=== PATIENT | female | born 1940 | race Caucasian/White ===

== ENCOUNTER → 2017-08-13 | Outpatient (CLI) | payer MEDICARE, BC ==
[~2017-08-13] MED LIST: BENICAR PO; CALCIUM & MAGNE1 CAP PO; CO Q-1010 MG PO; DIGESTIVE ENZYM1 TAB PO; FISH OIL1 IU PO; LEVOTHYROXINE0.05 MG PO; VITAMIN C500 MG PO; VITAMIN D1000 IU PO; [UNRECOGNIZED DRUG - OTHER] PO
== END ==
LOC: MC.RAD 11:40
DX: Z12.31 Encounter for screening mammogram for malignant neoplasm of breast (principal)

== ENCOUNTER → 2018-04-27 | Outpatient (CLI) | payer MEDICARE, BC | LOC: SUN.DIA 14:53 | DX: E11.9 Type 2 diabetes mellitus without complications (principal); I10 Essential (primary) hypertension; Z68.26 Body mass index [BMI] 26.0-26.9, adult; Z71.3 Dietary counseling and surveillance | CPT/HCPCS: G0108 ==

== ENCOUNTER → 2018-05-19 | Outpatient (CLI) | payer MEDICARE, BC | LOC: SUN.DIA 11:05 | DX: E11.9 Type 2 diabetes mellitus without complications (principal); I10 Essential (primary) hypertension; Z68.26 Body mass index [BMI] 26.0-26.9, adult; Z71.3 Dietary counseling and surveillance | CPT/HCPCS: G0108 ==

== ENCOUNTER → 2018-08-16 | Outpatient (CLI) | payer MEDICARE, BC | LOC: SUN.DIA 09:31 | DX: E11.9 Type 2 diabetes mellitus without complications (principal); I10 Essential (primary) hypertension | CPT/HCPCS: G0108 ==

== ENCOUNTER → 2019-03-14 | Outpatient (CLI) | payer MEDICARE, BC | LOC: SUN.DIA 10:58 | DX: E11.9 Type 2 diabetes mellitus without complications (principal); I10 Essential (primary) hypertension | CPT/HCPCS: G0108 ==

== ENCOUNTER → 2019-09-05 | Outpatient (CLI) | payer MEDICARE, BC | LOC: MC.RAD 10:30 | DX: Z12.31 Encounter for screening mammogram for malignant neoplasm of breast (principal) ==

== ENCOUNTER → 2021-04-03 | Outpatient (CLI) | payer MEDICARE, BC ==
[2021-04-03] VITALS (7 sets, daily range): BP systolic 187–215; BP diastolic 93–113; PULSE 83–122
[~2021-04-03] VITALS: Ht 162.6 cm; Wt 71.5 kg
[~2021-04-03] MED LIST changes: +AMOXICILLIN 8751 TAB PO; +ARMOUR THYROID30 MG PO; +ASPIRIN 81M81 MG/TA2 PO; +BENICAR 20MG TA20 MG PO; +CARDIZEM CD 18180 MG PO; +FLONASE NASAL S16 GM NS; +FOSAMAX 70MG TA70 MG PO; +GLUCOPHAGE XR500 M1 PO; +LASIX 20MG TABL20 MG PO; +MASON NATURAL2000 IU PO; +MUCINEX DM 30 M1 TE1 PO; +PRILOSEC 20MG20 MG PO; +PROAIR HFA0.09 MG/AC IH; +PROTONIX 40MG T40 MG PO; +REGLAN 5MG T5 MG/TAB PO; +REQUIP0.25 MG PO; +VALTREX1 GM PO; +VITAMIN D31000 IU PO; +ZOLOFT 25MG25 MG PO
== END ==
LOC: COL.CARD 05:41
DX: R06.00 Dyspnea, unspecified (principal)
CPT/HCPCS: A9500; J2785

== ENCOUNTER → 2021-04-23 | Outpatient (CLI) | payer MEDICARE, BC | LOC: COL.VAS 04-11 14:45 | DX: I34.0 Nonrheumatic mitral (valve) insufficiency (principal); R06.00 Dyspnea, unspecified ==

== ENCOUNTER → 2021-04-30 | Outpatient (CLI) | payer MEDICARE, BC | LOC: DIA.ED | DX: E11.9 Type 2 diabetes mellitus without complications (principal); Z79.84 Long term (current) use of oral hypoglycemic drugs; I10 Essential (primary) hypertension; E03.9 Hypothyroidism, unspecified ==

== ENCOUNTER 2021-08-04 17:41 | Inpatient (IN) | payer MEDICARE, BC ==
[~2021-08-04] VITALS: Ht 160 cm; Wt 67.7 kg
[~2021-08-04 17:41] MED LIST changes: -AMOXICILLIN 8751 TAB PO; -ASPIRIN 81M81 MG/TA2 PO; -CARDIZEM CD 18180 MG PO; -FLONASE NASAL S16 GM NS; -FOSAMAX 70MG TA70 MG PO; -LASIX 20MG TABL20 MG PO; -MUCINEX DM 30 M1 TE1 PO; -PRILOSEC 20MG20 MG PO; -PROAIR HFA0.09 MG/AC IH; -PROTONIX 40MG T40 MG PO; -REGLAN 5MG T5 MG/TAB PO; -REQUIP0.25 MG PO; -VALTREX1 GM PO; -ZOLOFT 25MG25 MG PO
[2021-08-04 19:12] LABS: HEMOGLOBIN 12.5 g/dl (12.5-16.0); MEAN CELL VOLUME 86 fl (80.0-100.0); MEAN CORPUSCULAR HEMOGLOBIN 29 pg (27.0-31.0); MEAN CORPUSCULAR HGB CONC 34 g/dl (33.0-37.0); MEAN PLATELET VOLUME 9.7 fl (7.4-10.4); PLATELET COUNT 239 K/mm3 (130-400); RED BLOOD COUNT 4.25 M/mm3 (4.10-5.30); REDCELL DISTRIBUTION WIDTH-CV 12.5 % (11.5-14.5)
[2021-08-04 19:17] LABS: ALANINE AMINOTRANSFERASE 29 U/L (4-34); ALBUMIN 3.7 gm/dL (3.5-5.0); ALKALINE PHOSPHATASE 53 U/L (50-136); ANION GAP 9 mmol/L (7-16); AST,SGOT 36 U/L (15-37); BILIRUBIN,TOTAL 0.4 mg/dL (0.0-1.0); BLOOD UREA NITROGEN 12 mg/dL (7-17); CALCIUM 8.6 mg/dL (8.4-10.2); CARBON DIOXIDE 22 mmol/L (22-30); CHLORIDE 91 mmol/L (98-107); CREATININE, serum 0.66 (0.52-1.25); GLUCOSE 174 mg/dL (74-106); POTASSIUM 4.3 mmol/L (3.4-5.0); SODIUM 122 mmol/L (137-145)
[2021-08-04 19:19] LABS: HEMATOCRIT 36.6 % (37.0-47.0)
[2021-08-04 19:33] LABS: C-REACTIVE PROTEIN 24.2 mg/dL (0.0-0.9); TROPONIN-I < 0.012 ng/mL (0.000-0.035)
[2021-08-04 19:36] LABS: COLLECTION METHOD CLEAN CATCH
[2021-08-04 19:44] LABS: PH 6 (5-8); SQUAMOUS EPITHELIAL None Seen /hpf; URINE APPEARANCE Clear; URINE BACTERIA None Seen /hpf; URINE BILIRUBIN Negative (NEGATIVE); URINE BLOOD Negative (NEGATIVE); URINE COLOR Straw; URINE GLUCOSE Negative (NEGATIVE); URINE KETONE Negative (NEGATIVE); URINE LEUKOCYTE ESTERASE Negative (NEGATIVE); URINE NITRATE Negative (NEGATIVE); URINE PROTEIN(semi-quant) Negative (NEGATIVE); URINE RBC 0-2 /hpf; URINE UROBILINOGEN Negative (NEGATIVE)
[2021-08-04 19:48] LABS: BAND 2 % (0-10); LYMPHOCYTE 14 % (20.0-51.0); NEUTROPHILS 77 % (42.0-75.2); PLATELET ESTIMATE NORMAL (NORMAL)
[2021-08-04 19:58] LABS: ERYTHROCYTE SEDIMENTATION RATE 61 mm/hr (0-30)
[2021-08-04] MEDS ORDERED: VALTREX1 GM PO (20:17)
--- NOTE | 2021-08-04 22:30 | NUR ---
Patient to medical room 352 at this time. Pt is alert and oriented with no complaints of pain. Her gait is unsteady and she requires SBA to transfer. HR is normal/regular and lungs are clear in upper lobes with fine crackles in bases. NO edema is noted. A red shingles rash is present on pt's right shoulder; no lesions are opened. Patient placed on contact precautions. Admission assessments and med rec complete. Call light within reach. Comfort measures met.
[2021-08-04 22:38] VITALS: BP 157/76; PULSE 82; TEMP 98.7
[2021-08-04] MEDS ORDERED: REGLAN 5MG T5 MG/TAB PO (23:25)
[2021-08-04] MEDS ORDERED: FOSAMAX 70MG TA70 MG PO (23:25)
[2021-08-04] MEDS ORDERED: LASIX 20MG TABL20 MG PO (23:25)
[2021-08-04] MEDS ORDERED: ZOLOFT 25MG25 MG PO (23:25)
[2021-08-04] MEDS ORDERED: REQUIP0.25 MG PO (23:26)
[2021-08-04] MEDS ORDERED: CARDIZEM CD 18180 MG PO (23:26)
[2021-08-04] MEDS ORDERED: PRILOSEC 20MG20 MG PO (23:26)
[2021-08-04] MEDS ORDERED: ASPIRIN 81M81 MG/TA2 PO (23:26)
[2021-08-05] VITALS (8 sets, daily range): BP systolic 138–182; BP diastolic 58–81; PULSE 76–96; TEMP 97.7–98.7
[2021-08-05 04:01] LABS: HEMATOCRIT 37.4 % (37.0-47.0); HEMOGLOBIN 12.8 g/dl (12.5-16.0); MEAN CELL VOLUME 85 fl (80.0-100.0); MEAN CORPUSCULAR HEMOGLOBIN 29 pg (27.0-31.0); MEAN CORPUSCULAR HGB CONC 34 g/dl (33.0-37.0); MEAN PLATELET VOLUME 9.5 fl (7.4-10.4); PLATELET COUNT 226 K/mm3 (130-400); REDCELL DISTRIBUTION WIDTH-CV 12.4 % (11.5-14.5)
[2021-08-05 04:09] LABS: CALCIUM 8.4 mg/dL (8.4-10.2); CREATININE, serum 0.65 (0.52-1.25); POTASSIUM 3.8 mmol/L (3.4-5.0)
[2021-08-05 04:28] LABS: BAND 4 % (0-10); LYMPHOCYTE 15 % (20.0-51.0); METAMYELOCYTE 1 % (0-0); NEUTROPHILS 72 % (42.0-75.2); PLATELET ESTIMATE NORMAL (NORMAL)
--- NOTE | 2021-08-05 06:47 | NUR ---
Patient up to BSC several times overnight; voided 200 each time of clear, yellow urine. Patienton 2 liters o2 overnight, which is her baseline; she gets slightly winded with exertion but does not desat. No complaints of pain overnight and has remained afebrile. Call light in reach.
--- NOTE | 2021-08-05 10:44 | NUR ---
child and family services worker met with patient to discuss discharge plan. Patient lives at home with her in [place]. Reports to being fully independent with activities of daily living however the past few day's she has needed help from her to get to the bathroom. During this time, the patient has been using a cane to stedy herself but does not use it on a regular bases. PCP is Dr. Wong and uses [facility] for perscriptions. Reports not trouble affording medicines. Patient also see's Dr. Kowalski for pulmonology needs. Reports to using [place] O[place] at home during the night and receives her O2 through [facility]. Patient states she has a DPOA-HC established but has a meeting set up to make changes on it. Patient reports that her and her are "Passport Members" to the [facility] and is willing to receive care their post dc if it is needed. child and family services worker also talked about HH services and the patient is open to this idea as well pending PT/OT rec's, but at this moment is planning on returning back home. *Discharge plan: Home- possible HH/SNF pending PT/OT rec's*
--- NOTE | 2021-08-05 10:52 | NUR ---
Assessment completed, alert/oriented, vital signs stable, reports feeling better overall, lungs CTA/diminished, has a dry non-productive cough, heart RRR/distal pulses are palapble, IVF and abx infusing, Na level improved on a.m. labs, she is sitting up eating breakfast and denies other needs
--- NOTE | 2021-08-05 12:29 | NUR ---
First visit from the landscape account manager. No needs right now.
--- NOTE | 2021-08-05 15:16 | NUR ---
ironworker helper shop met with the patient to discuss recommendation for HH. Patient verbalizes that she would like [facility]. Phone call made to Shari at [facility]- and referral faxed. SW discussed the need for a walker. Patient verbalizes her understanding and agree's to the sw making the arrangement for [facility] to provide one, once we know a discharge date. *Discharge plan: Home with HH- Will need to order a walker from [facility]*
--- NOTE | 2021-08-05 16:28 | NUR ---
Shari with [facility] accepts patient for HH upon DC. *Discharge plan: Home w/ [facility]-*
[2021-08-06 03:44] VITALS: BP 155/69; PULSE 84; TEMP 98.4
--- NOTE | 2021-08-06 06:46 | NUR ---
Patient has had an uneventful and restful night. She ambulated with SBA and walker to bathroom three times overnight and had one loose bowel movement. She has worn 2 liters 02 overnight, which is her baseline. She has had no complaints of pain. Fluids still infusing into right a/c IV. Call light in reach. No new concerns.
[2021-08-06 06:53] LABS: HEMOGLOBIN 11.1 g/dl (12.5-16.0); MEAN CELL VOLUME 89 fl (80.0-100.0); MEAN CORPUSCULAR HEMOGLOBIN 29 pg (27.0-31.0); MEAN CORPUSCULAR HGB CONC 33 g/dl (33.0-37.0); MEAN PLATELET VOLUME 9.8 fl (7.4-10.4); PLATELET COUNT 255 K/mm3 (130-400); RED BLOOD COUNT 3.78 M/mm3 (4.10-5.30); REDCELL DISTRIBUTION WIDTH-CV 12.9 % (11.5-14.5)
--- NOTE | 2021-08-06 07:00 | NUR ---
Report with BRIDGER Barahona. Pt up to bathroom with assistance from ERNIE.
[2021-08-06 07:02] LABS: HEMATOCRIT 33.8 % (37.0-47.0)
[2021-08-06 07:03] VITALS: BP 167/79; PULSE 85; TEMP 98
[2021-08-06 07:19] LABS: CALCIUM 8.5 mg/dL (8.4-10.2); CREATININE, serum 0.71 (0.52-1.25); POTASSIUM 3.7 mmol/L (3.4-5.0)
[2021-08-06 08:04] LABS: BAND 3 % (0-10); EOSINOPHIL 1 % (0-4); LYMPHOCYTE 31 % (20.0-51.0); METAMYELOCYTE 1 % (0-0); NEUTROPHILS 53 % (42.0-75.2); PLATELET ESTIMATE NORMAL (NORMAL)
--- NOTE | 2021-08-06 09:00 | NUR ---
Assessment complete. Pt sitting up in bed, A&O x 4, denies pain or c/o at this time. Saline lock IV to right AC without s/s of complications. Physical assessment unremarkable. No further needs reported. Call light in reach.
[2021-08-06] MEDS ORDERED: AMOXICILLIN 8751 TAB PO (09:28)
[2021-08-06] MEDS ORDERED: PROAIR HFA0.09 MG/AC IH (09:29)
[2021-08-06] MEDS ORDERED: FLONASE NASAL S16 GM NS (09:29)
[2021-08-06] MEDS ORDERED: PROTONIX 40MG T40 MG PO (09:29)
[2021-08-06] MEDS ORDERED: MUCINEX DM 30 M1 TE1 PO (09:30)
--- NOTE | 2021-08-06 12:25 | NUR ---
Discharge instructions reviewed with pt regarding new medications and follow-up appointment and home health orders. Pt and pt's verbalize understanding. Pt discharged home, escorted out of facility via WC accompanied by FLYING SHEAR OPERATOR and pt's .
--- NOTE | 2021-08-06 14:47 | NUR ---
Pediatric Dental Hygienist spoke with patient, who will be discharging home today. EDWARD advised patient that [facility] has accepted and that SW would secure a front wheeled walker from [facility]. Patient advised her , Jorge would be able to picker tender FWW today. SW faxed referral and order for FWW to Verenice at [facility]. EDWARD contacted patient's , Jorge who advised he would be able to picker tender FWW today. Jorge advised he had some concerns about patient discharging home today. EDWARD reviewed PT note with Jorge and advised that patient is medically cleared for discharge today. EDWARD also advised that [facility] would be in contact with them to set up the first visit. EDWARD contacted Shari at [facility] and faxed discharge orders. Patient to discharge home today with [facility] PT/OT/Nursing.
== END 2021-08-06 12:30 | disposition home health service (06) | DRG 194 ==
LOC: COL.ER 17:41 → MEDICAL 21:03
PROVIDERS: Family Medicine; Nurse Practitioner Family; Student in an Organized Health Care Education/Training Program; ADMIT Student in an Organized Health Care Education/Training Program
DX: J18.9 Pneumonia, unspecified organism (principal); E87.1 Hypo-osmolality and hyponatremia; M19.90 Unspecified osteoarthritis, unspecified site; E03.9 Hypothyroidism, unspecified; I10 Essential (primary) hypertension; E11.9 Type 2 diabetes mellitus without complications; Z66 Do not resuscitate; Z20.822 Contact with and (suspected) exposure to COVID-19; K21.9 Gastro-esophageal reflux disease without esophagitis; R53.1 Weakness; Z90.710 Acquired absence of both cervix and uterus; Z90.89 Acquired absence of other organs
CPT/HCPCS: 99223-AI; 99233-AI; 99239; A9284; J1650; J1815; J1956; J2543; J7030; J7040; Q9967

== ENCOUNTER → 2024-08-22 | Outpatient (CLI) | payer MEDICARE, BC ==
[~2024-08-22] MED LIST changes: +AMOXICILLIN 8751 TAB PO; +ASPIRIN 81M81 MG/TA2 PO; +CARDIZEM CD 18180 MG PO; +FLONASE NASAL S16 GM NS; +FOSAMAX 70MG TA70 MG PO; +LASIX 20MG TABL20 MG PO; +MUCINEX DM 30 M1 TE1 PO; +PRILOSEC 20MG20 MG PO; +PROAIR HFA0.09 MG/AC IH; +PROTONIX 40MG T40 MG PO; +REGLAN 5MG T5 MG/TAB PO; +REQUIP0.25 MG PO; +VALTREX1 GM PO; +ZOLOFT 25MG25 MG PO
== END ==
LOC: COL.RAD 11:52
DX: M47.814 Spondylosis without myelopathy or radiculopathy, thoracic region (principal); S22.050A Wedge compression fracture of T5-T6 vertebra, initial encounter for closed fracture; S22.080A Wedge compression fracture of T11-T12 vertebra, initial encounter for closed fracture; M48.04 Spinal stenosis, thoracic region